=== PATIENT | female | born 1935 ===

== ENCOUNTER 2017-07-13 13:32 | Outpatient (CLI) | payer MEDICARE ==
--- NOTE | 2017-07-13 13:56 | XRay Report ---
Left knee 4 views: History: Knee pain. Findings: These total knee replacement noted. The tibial and femoral component is anatomic and in alignment. No fracture or soft tissue calcification or joint effusion. Impression: Stable left knee arthroplasty.
== END 2017-07-13 13:33 | disposition home or self-care (01) ==
LOC: SPVIMAG 13:32
PROVIDERS: ATTEND Orthopaedic Surgery Sports Medicine
DX: M25.562 Pain in left knee (principal); Z96.652 Presence of left artificial knee joint